=== PATIENT | male | born 1965 | race Caucasian/White ===

== ENCOUNTER 2016-10-01 07:42 | Observation (INO) | payer OTHER ==
[~2016-10-01] VITALS: Ht 175.3 cm; Wt 86.9 kg
[~2016-10-01 07:42] MED LIST: FLUT0.0529; OMEP20CA59 PO; SULF800T23 PO
[2016-10-01] MEDS ORDERED: ASPIRIN 324 MG CHEW PO STA (07:59)
[2016-10-01] MEDS ORDERED: NITROGLYCERIN 0.4 MG SL PER TAB CHARGE SL STA ×2 (07:59→09:36)
[2016-10-01 08:13] LABS: BASO % 1.2 %; BASO ABS # 0.07 K/uL (0-0.2); COMPLETE YES; HEMATOCRIT 45.2 % (42-52); IG% 0.3 %; LYMPH ABS # 2.39 K/uL (1.2-3.4); MEAN CELL VOLUME 87.3 fL (80-100); MEAN CORPUSCULAR HEMOGLOBIN 30.5 pg (25-34); MEAN PLATELET VOLUME 9.2 fL (7.4-10.4); MONO % 9.2 %; NEUT % 42.3 %; PLATELET COUNT 266 K/uL (130-400); RED BLOOD COUNT 5.18 M/uL (4.7-6.1); WHITE BLOOD COUNT 5.97 K/uL (4.8-10.8)
--- NOTE | 2016-10-01 08:14 | EMERGENCY ROOM VISIT NOTE ---
History First contact with patient: 07:48 Chief Complaint: CHEST PAIN Stated Complaint: HYPERTENSION, CHEST PAIN, LEFT ARM PAIN Nursing Triage Summary: pt here with chest pain/pressure since last pm. pt states had some pressure in his back. pt has been hypertensive, has had head pressure. denies sob, some intermittent dipahoresis History of Present Illness The patient is a 50 year old male who presents to the Emergency Room with complaints of chest pain, left arm pain and headache. The patient states that 2 nights ago he was very diaphoretic overnight. He states that he has also had an ongoing headache. He states he developed pressure in his chest last night. He states he has also noticed pain in the left posterior shoulder. The patient states that he felt short of breath but that has resolved. The patient reports a history of a heart murmur. His mother had a heart murmur. His father had a valve replacement, hypertension and atrial fibrillation. The patient denies any history of hypertension, hyperlipidemia, diabetes or cardiac disease. He had a normal stress echo in 2009. He denies any recent illness. Review of Systems A 10 system review of systems was completed with positives and pertinent negatives listed in the HPI. Past Medical/Surgical History Medical Problems: (1) GERD (gastroesophageal reflux disease) Surgical Problems: (1) History of dental surgery (2) History of vasectomy Social History Smoking Status: Never Smoker Drug Use: none Marital Status: Occupation Status: employed Current/Historical Medications Scheduled Amlodipine Besylate (Amlodipine Besylate), 5 MG PO QAM Omeprazole (Prilosec), 20 MG PO DAILY Scheduled PRN Fluticasone Propionate (Nasal) (Flonase Allergy Relief), 1 SPRAY EVELIA DAILY PRN for ALLERGIC REACTION Allergies Coded Allergies: No Known Allergies (Unverified , 10/01/16) Physical Exam Vital Signs Date Time Temp Pulse Resp B/P Pulse Ox O2 Delivery O2 Flow Rate FiO2 10/01/16 10:53 58 16 140/100 97 Room Air 10/01/16 10:42 49 10/01/16 09:58 56 16 115/78 97 Room Air 10/01/16 09:27 56 16 146/87 98 Room Air 10/01/16 08:35 50 16 119/76 97 Room Air 10/01/16 07:51 37.0 60 16 151/99 96 Room Air 10/01/16 07:50 70 Physical Exam VITALS: Vitals are noted on the nurse's note and reviewed by myself. Vital signs stable. The patient is afebrile. GENERAL: This is a 50-year-old male, in no acute distress, nondiaphoretic, well- developed well-nourished. SKIN: The skin was without rashes, erythema, edema, or bruising. There is no tenting of the skin. Capillary reflex less than 2 seconds. HEAD: Normocephalic atraumatic. EARS: External auditory canals clear, tympanic membranes pearly lozano without erythema or effusion bilaterally. EYES: Pupils equal round and reactive to light and accommodation. Conjunctivae without injection, sclerae without icterus. Extraocular movements intact. NOSE: Patent, turbinates without inflammation or discharge. MOUTH: Mucous membranes moist. Tonsils are not enlarged. Pharynx without erythema or exudate. Uvula midline. Airway patent. Tongue does not deviate. NECK: Supple without nuchal rigidity. No lymphadenopathy. No thyromegaly. Cervical spine is nontender. No JVD. HEART: Regular rate and rhythm without murmurs gallops or rubs. LUNGS: Clear to auscultation bilaterally without wheezes, rales or rhonchi. No retractions or accessory muscle use. ABDOMEN: Positive bowel sounds x 4. Soft, nontender, without masses or organomegaly. MUSCULOSKELETAL: No muscle atrophy, erythema, or edema noted. Full range of motion in all extremities. Normal gait. Strength 5/5 throughout. NEURO: Patient was alert and oriented to person place and time. No focal neurological deficits. Medical Decision & Procedures ER Provider Diagnostic Interpretation: [~ rep ct add3]] CHEST ONE VIEW PORTABLE CLINICAL HISTORY: chest pain dyspnea COMPARISON STUDY: No previous studies for comparison. FINDINGS: The bones soft tissues and hemidiaphragms are normal. The cardiomediastinal silhouette is normal. The lungs are clear. The pulmonary vasculature is normal. IMPRESSION: Negative chest. HEAD CT NONCONTRAST CT DOSE: 537.48 mGy.cm HISTORY: headache, hypertension TECHNIQUE: Multiaxial CT images of the head were performed without the use of intravenous contrast. Comparison: None. Findings: The paranasal sinuses and mastoid air cells are clear. The calvarium and skull base are intact. The ventricles and sulci are within normal limits. There is no mass, hematoma, midline shift, or acute infarct. Impression: No acute intracranial abnormality. Laboratory Results Test 10/01/16 07:52 10/01/16 08:02 10/01/16 09:49 Immature Granulocyte % (Auto) 0.3 % White Blood Count 5.97 K/uL (4.8-10.8) Red Blood Count 5.18 M/uL (4.7-6.1) Hemoglobin 15.8 g/dL (14.0-18.0) Hematocrit 45.2 % (42-52) Mean Corpuscular Volume 87.3 fL (80-100) Mean Corpuscular Hemoglobin 30.5 pg (25-34) Mean Corpuscular Hemoglobin Concent 35.0 g/dl (32-36) Platelet Count 266 K/uL (130-400) Mean Platelet Volume 9.2 fL (7.4-10.4) Neutrophils (%) (Auto) 42.3 % Lymphocytes (%) (Auto) 40.0 % Monocytes (%) (Auto) 9.2 % Eosinophils (%) (Auto) 7.0 % Basophils (%) (Auto) 1.2 % Neutrophils # (Auto) 2.52 K/uL (1.4-6.5) Lymphocytes # (Auto) 2.39 K/uL (1.2-3.4) Monocytes # (Auto) 0.55 K/uL (0.11-0.59) Eosinophils # (Auto) 0.42 K/uL (0-0.5) Basophils # (Auto) 0.07 K/uL (0-0.2) Immature Granulocyte # (Auto) 0.02 K/uL (0.00-0.02) Prothrombin Time 10.5 SECONDS (9.0-12.0) Prothromb Time International Ratio 1.0 (0.9-1.1) Activated Partial Thromboplast Time 27.7 SECONDS (21.0-31.0) Partial Thromboplastin Ratio 1.1 Total Bilirubin 0.8 mg/dl (0.2-1) Aspartate Amino Transf (AST/SGOT) 27 U/L (15-37) Alanine Aminotransferase (ALT/SGPT) 44 U/L (12-78) Alkaline Phosphatase 83 U/L (45-117) Total Creatine Kinase 136 U/L (39-308) Total Protein 7.9 gm/dl (6.4-8.2) Albumin 3.9 gm/dl (3.4-5.0) Globulin 4.0 gm/dl (2.5-4.0) Albumin/Globulin Ratio 1.0 (0.9-2) Bedside D-Dimer 81 ng/mlFEU (0-450) Bedside Troponin I 0.000 ng/ml (0-0.045) Medications Administered Medications (Trade) Dose Ordered Sig/Kimberly Route Start Time Stop Time Status Last Admin Dose Admin Aspirin (Aspirin Chew) 324 mg NOW STAT PO 10/01/16 07:59 10/01/16 08:01 DC 10/01/16 08:06 324 MG Nitroglycerin (Nitrostat Tab) 0.4 mg Q5M STAT SL 10/01/16 07:59 10/01/16 08:01 DC 10/01/16 08:07 0.4 MG Nitroglycerin (Nitrostat Tab) 0.4 mg Q5M STAT SL 10/01/16 09:36 10/01/16 09:37 DC 10/01/16 09:36 0.4 MG Procedure The patient was monitored on a cardiac cath technician. They maintained a normal sinus rhythm without ectopy. ECG Indication: chest pain Rate (beats per minute): 61 Rhythm: normal sinus Findings: no acute ischemic change Comparison ECG Date: no prior available ED Course The patient was seen and examined. Previous visits were reviewed. The patient does not have a fever or leukocytosis. He does not have any significant electrolyte abnormalities. Initial and repeat troponins was 0. D-dimer was not elevated. Urinalysis was negative. The patient was initially given 1 aspirin He was given 1 nitroglycerin sublingual which resolved pain The pain returned and he was given an additional sublingual nitroglycerin which again alleviated his pain The patient has had atypical chest pain. He has had 2 negative troponins. However, the patient had 2 episodes of chest pain which were alleviated with nitroglycerin Emergency department. I discussed the case with Dr. Higgins. He recommends admission to the hospital for observation for further evaluation. [facility] and [facility] will evaluate the patient. The case was discussed with Dr. Forbes who agrees with the assessment and treatment plan. Medical Decision DIFFERENTIAL DIAGNOSIS: Aortic dissection, myocarditis, pericarditis, cervical disc disease, costochondritis, herpes zoster, rib fracture, pleuritis, pneumonia , pulmonary embolus, tension pneumothorax, anxiety disorder, somatoform disorder , choledocholithiasis, status, esophagitis, esophageal spasm, esophageal reflux , esophageal rupture, pancreatitis, peptic ulcer disease, cardiac ischemia, ST elevation MT, acute coronary syndrome, arrhythmia, coronary artery vasospasm. vavular heart disease, coronary artery disease, among others. Impression Primary Impression: Substernal precordial chest pain Additional Impression: Headache Departure Information Prescriptions Amlodipine Besylate (Amlodipine Besylate) 5 Mg Tab 5 MG PO QAM for 30 Days, #30 TAB Prov: Silviano White, 10/02/16 Referrals Farhad Larsen M.D. (PCP) Patient Instructions My [facility] Problem Qualifiers
[2016-10-01 08:21] LABS: PARTIAL THROMBOPLASTIN RATIO 1.1; PROTHROMBIN TIME (PATIENT) 10.5 SECONDS (9.0-12.0)
--- NOTE | 2016-10-01 08:27 | DIAGNOSTIC IMAGING REPORT ---
HEAD CT NONCONTRAST CT DOSE: 537.48 mGy.cm HISTORY: headache, hypertension TECHNIQUE: Multiaxial CT images of the head were performed without the use of intravenous contrast. Comparison: None. Findings: The paranasal sinuses and mastoid air cells are clear. The calvarium and skull base are intact. The ventricles and sulci are within normal limits. There is no mass, hematoma, midline shift, or acute infarct. Impression: No acute intracranial abnormality. Electronically signed by: Puneet Noland M.D. 10/01/2016 8:26 AM Dictated Date/Time: 10/01/2016 8:25 AM
--- NOTE | 2016-10-01 08:34 | DIAGNOSTIC IMAGING REPORT ---
CHEST ONE VIEW PORTABLE CLINICAL HISTORY: chest pain dyspnea COMPARISON STUDY: No previous studies for comparison. FINDINGS: The bones soft tissues and hemidiaphragms are normal. The cardiomediastinal silhouette is normal. The lungs are clear. The pulmonary vasculature is normal. IMPRESSION: Negative chest. Electronically signed by: Puneet Noland M.D. 10/01/2016 8:33 AM Dictated Date/Time: 10/01/2016 8:32 AM
[2016-10-01] MEDS ORDERED: FLUT0.15 NAE (08:35)
[2016-10-01 08:43] LABS: ALKALINE PHOSPHATASE 83 U/L (45-117); ALT/SGPT 44 U/L (12-78); BLOOD UREA NITROGEN 13 mg/dl (7-18); BUN/CREATININE RATIO 11.7 (10-20); CARBON DIOXIDE 25 mmol/L (21-32); CHLORIDE 107 mmol/L (98-107); GLUCOSE 93 mg/dl (70-99)
[2016-10-01 08:47] LABS: POTASSIUM 4.5 mmol/L (3.5-5.1); SODIUM 140 mmol/L (136-145)
[2016-10-01 08:56] LABS: AST/SGOT 27 U/L (15-37)
[2016-10-01] MEDS ORDERED: NITROGLYCERIN 0.4 MG SL PER TAB CHARGE SL PRN (11:15)
[2016-10-01] MEDS ORDERED: ONDANSETRON INJ 2 MG/ML 2 ML VIAL IV PRN (11:15)
[2016-10-01 11:31] VITALS: BP 124/88; PULSE 61; TEMP 37; O2SAT 96; Ht 175.3 cm; Wt 86.9 kg
[2016-10-01] MEDS ORDERED: AMLODIPINE BESYLATE 5 MG TAB PO ONE ×2 (11:45→13:30)
--- NOTE | 2016-10-01 12:02 | History and Physical ---
History & Physical Date & Time of Service: Oct 01, 2016 at 11:44 Chief Complaint: Chest Pain, Headache Primary Care Physician: Farhad Larsen M.D. History of Present Illness 50 year old male who presents to the ER with reports of chest pain, headache, and left arm pain. Patient reports that for the past two days he has had a headache and felt very flushed. When he woke up in the morning he had alot of diaphoresis. This morning he had similar symptoms but reports right sided chest pressure with pain in the left shoulder, scapula, and posterior upper left arm. He reports the pain #5/10 at its worst. He notes some mild exertional shortness of breath the past couple of days. Last night when going to the bathroom he reports he felt mild lightheadedness. He denies dizziness and syncopal events. 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 Patient denies any specific causative or alleviating factors for his symptoms. He reports he is normally very active. He reports a high amount of stress with his job. He denies orthopnea and lower extremity edema. He denies abdominal pain, nausea, vomiting , or diarrhea. No fever or chills. He denies any urinary symptoms. In the ER, patient was given nitro x 2 for two separate episodes of chest pain which resolved his pain however he still has a mild headache. Troponins are negative x 2. EKG demonstrates NSR without acute ST changes. BP on arrival was 151/99. Labs are unremarkable. Past Medical/Surgical History Medical Problems: (1) GERD (gastroesophageal reflux disease) Status: Chronic Surgical Problems: (1) History of dental surgery Status: Chronic (2) History of vasectomy Status: Chronic Family History FH: CHF (congestive heart failure) FATHER FH: COPD (chronic obstructive pulmonary disease) MOTHER FH: arrhythmia 1/2 Brother 1/2 Sister FH: atrial fibrillation FATHER Social History Smoking Status: Never Smoker Alcohol Use: occasionally Marital Status: Occupational Status: employed Immunizations History of Influenza Vaccine: Yes Influenza Vaccine Date: Apr 15, 2016 History of Tetanus Vaccine?: Yes Tetanus Immunization Date: Aug 26, 2011 Allergies Coded Allergies: No Known Allergies (Unverified , 10/01/16) Home Medications Scheduled Omeprazole (Prilosec), 20 MG PO DAILY Scheduled PRN Fluticasone Propionate (Nasal) (Flonase Allergy Relief), 1 SPRAY EVELIA DAILY PRN for ALLERGIC REACTION Review of Systems 10 point review of systems was completed with the pertinent positives and negatives noted per the HPI Physical Exam Vital Signs Date Time Temp Pulse Resp B/P Pulse Ox O2 Delivery O2 Flow Rate FiO2 10/01/16 11:31 37.0 61 16 124/88 96 Room Air 10/01/16 10:53 58 16 140/100 97 Room Air 10/01/16 10:42 49 10/01/16 09:58 56 16 115/78 97 Room Air 10/01/16 09:27 56 16 146/87 98 Room Air 10/01/16 08:35 50 16 119/76 97 Room Air 10/01/16 07:51 37.0 60 16 151/99 96 Room Air 10/01/16 07:50 70 General Appearance: no apparent distress Head: normocephalic Eyes: normal inspection ENT: hearing grossly normal Neck: supple, no JVD Respiratory/Chest: chest non-tender, lungs clear, normal breath sounds, no respiratory distress Cardiovascular: regular rate, rhythm, no edema, normal peripheral pulses Abdomen/GI: normal bowel sounds, non tender, soft Extremities/Musculoskelatal: normal inspection, no calf tenderness Neurologic/Psych: no motor/sensory deficits, alert, normal mood/affect, oriented x 3 Skin: normal color, warm/dry Diagnostics Laboratory Results Results Past 24 Hours Test 10/01/16 07:52 10/01/16 08:02 10/01/16 09:49 Range/Units White Blood Count 5.97 4.8-10.8 K/uL Red Blood Count 5.18 4.7-6.1 M/uL Hemoglobin 15.8 14.0-18.0 g/dL Hematocrit 45.2 42-52 % Mean Corpuscular Volume 87.3 80-100 fL Mean Corpuscular Hemoglobin 30.5 25-34 pg Mean Corpuscular Hemoglobin Concent 35.0 32-36 g/dl Platelet Count 266 130-400 K/uL Mean Platelet Volume 9.2 7.4-10.4 fL Neutrophils (%) (Auto) 42.3 % Lymphocytes (%) (Auto) 40.0 % Monocytes (%) (Auto) 9.2 % Eosinophils (%) (Auto) 7.0 % Basophils (%) (Auto) 1.2 % Neutrophils # (Auto) 2.52 1.4-6.5 K/uL Lymphocytes # (Auto) 2.39 1.2-3.4 K/uL Monocytes # (Auto) 0.55 0.11-0.59 K/uL Eosinophils # (Auto) 0.42 0-0.5 K/uL Basophils # (Auto) 0.07 0-0.2 K/uL RDW Standard Deviation 39.1 36.4-46.3 fL RDW Coefficient of Variation 12.2 11.5-14.5 % Immature Granulocyte % (Auto) 0.3 % Immature Granulocyte # (Auto) 0.02 0.00-0.02 K/uL Prothrombin Time 10.5 9.0-12.0 SECONDS Prothromb Time International Ratio 1.0 0.9-1.1 Activated Partial Thromboplast Time 27.7 21.0-31.0 SECONDS Partial Thromboplastin Ratio 1.1 Sodium Level 140 136-145 mmol/L Potassium Level 4.5 3.5-5.1 mmol/L Chloride Level 107 98-107 mmol/L Carbon Dioxide Level 25 21-32 mmol/L Anion Gap 8.0 3-11 mmol/L Blood Urea Nitrogen 13 7-18 mg/dl Creatinine 1.10 0.60-1.40 mg/dl Est Creatinine Clear Calc Drug Dose 88.6 ml/min Estimated GFR () 90.9 Estimated GFR (Non- 78.4 BUN/Creatinine Ratio 11.7 10-20 Random Glucose 93 70-99 mg/dl Calcium Level 9.0 8.5-10.1 mg/dl Total Bilirubin 0.8 0.2-1 mg/dl Aspartate Amino Transf (AST/SGOT) 27 15-37 U/L Alanine Aminotransferase (ALT/SGPT) 44 12-78 U/L Alkaline Phosphatase 83 45-117 U/L Total Creatine Kinase 136 39-308 U/L Creatine Kinase MB 1.4 0.5-3.6 ng/ml Creatine Kinase MB Ratio 1.0 0-3.0 Troponin I < 0.015 0-0.045 ng/ml Total Protein 7.9 6.4-8.2 gm/dl Albumin 3.9 3.4-5.0 gm/dl Globulin 4.0 2.5-4.0 gm/dl Albumin/Globulin Ratio 1.0 0.9-2 Bedside D-Dimer 81 0-450 ng/mlFEU Bedside Troponin I 0.000 0.000 0-0.045 ng/ml Diagnostic Radiology Head CT Impression: No acute intracranial abnormality. CXR IMPRESSION: Negative chest. Impression Assessment and Plan ATYPICAL CHEST PAIN - admit to tele - patient presenting with headache, flushing, diaphoresis x 2 days and right sided chest pressure with left arm/shoulder/scapula pain this morning - no risk factors for CAD identified - had two episodes of resting chest pain in ED - both relieved with nitro - BP on arrival - 150/99; has been taking BPs at home that have been 140s- 150s/90s-low 100s; no diagnosis of HTN - suspect HTN cause of patient's symptoms; due to diastolic HTN, will start amlodipine 5m daily - initial troponin negative, EKG without acute ST changes - continue to cycle cardiac enzymes, check resting echo - defer stress test to cardio - patient reports increased stress/anxiety at work - may benefit from SSRI, defer to PCP at follow up GERD - continue PPI DVT PROPHYLAXIS - SCDs DISPO - The patient will be placed as observation status for now until further work up is complete. - Expect d/c home once medically stable. ADDENDUM: This is a 50 year old male with no significant past medical history presents with chest pain, started on the right side of the chest, radiated to the left and then to the left scapula. Noted to have blood pressure elevated as outpatient with diastolic > 100. He presented to the ER, had two SL nitro which resolved the chest pain. No ST-T wave changes on EKG; initial set of cardiac enzymes negative. Patient is comfortable, with no issues to note currently. VITALS: Last Vital Signs Documentation Date Time Temp Pulse Resp B/P Pulse Ox O2 Delivery O2 Flow Rate FiO2 10/01/16 11:31 37.0 61 16 124/88 96 Room Air GEN: no acute distress CVS: +S1, S2, RRR LUNGS: CTA b/l, no wheezing ABD: soft, NT/ND EXT: no edema Chest Pain r/o ACS trend cardiac enzymes check echocardiogram monitor in tele for any arrhythmias started on low dose Norvasc for blood pressure issues cardiology consulted Advanced Directives Existing Living Will: No Existing Power of Global Compensation Analyst: No VTE Prophylaxis VTE Risk Assessment Done? Y/N: Yes Risk Level: Low
[2016-10-01 12:16] VITALS: O2SAT 96
[2016-10-01 13:53] VITALS: BP 124/73; PULSE 64; TEMP 36.7; O2SAT 95
[2016-10-01] MEDS ORDERED: IV FLUIDS COMPLETED PRN (14:45)
--- NOTE | 2016-10-01 14:51 | CARDIOLOGY CONSULTATION ---
DATE OF CONSULTATION: 10/01/2016 PRIMARY CARE PHYSICIAN: Dr. Farhad Capellan. REFERRING PROVIDER: Dr. Giovana Grey REFERRING PHYSICIAN: Silviano White DO. CHIEF COMPLAINT ON ADMISSION: Headache, chest discomfort. HISTORY OF PRESENT ILLNESS: Mr. Funes is a 50-year-old gentleman who presented to the Emergency Department with complaints of chest discomfort, headache, left-sided neck and arm pain. The patient noted that for the past 2 days he has felt flushed with headache intermittently. On the night before last he had awoken with diaphoresis. 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 He declined initially to come to the ER yesterday, however, today his symptoms recurred and were more severe. He was brought to the Emergency Department by his . Initially having 5/10 chest discomfort. He was treated with sublingual nitroglycerin and aspirin. After approximately 5-10 minutes, his discomfort resolved, however, headache has been intermittent since admission. He received a second dose of nitroglycerin while in the ER. His initial cardiac enzymes are negative. His baseline ECG demonstrates sinus rhythm without ST-T wave changes. His blood pressure is elevated initially on arrival. REVIEW OF SYSTEMS: The pertinent positive noted above, a comprehensive 10-system review is otherwise negative. PAST MEDICAL HISTORY: GERD. PAST SURGICAL HISTORY: 1. Dental surgery. 2. Vasectomy. FAMILY HISTORY: He has a brother and sister who had a history of atrial fibrillation, there is no premature coronary artery disease or sudden cardiac . SOCIAL HISTORY: He is a lifelong nonsmoker, he is and lives with his . He has 3 grown children. 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 ALLERGIES: No known drug allergies. HOME MEDICATIONS: 1. Prilosec 20 mg daily. 2. Flonase as needed. ECG on admission is normal sinus rhythm, within normal limits. Chest x-ray is within normal limits. CT of the head demonstrates no active disease. LABORATORY DATA: Initial troponin undetectable, repeat troponin performed approximately 2 hours later is also undetectable. Sodium 140, potassium 4.5, chloride is 107, CO2 is 25, BUN is 13, creatinine is 1.10. White blood cell count 5.97, hemoglobin is 15.8, platelet count is 266. PT is 10.5, INR is 1.0. D-dimer is 81. Telemetry demonstrates sinus rhythm. PHYSICAL EXAMINATION: VITAL SIGNS: Temperature is 36.7 degrees centigrade, pulse 64 beats per minute and regular, respiratory rate 16 breaths per minute, blood pressure 124/73 SaO2 is 95% on room air. GENERAL: NAD, healthy appearing, awake, alert and oriented x3. THROAT: His mucous membranes are moist. There is no scleral icterus. Conjunctivae are pink. NECK: Supple. There is no JVD, no HJR. No carotid bruit. HEART: Regular with a normal S1 and S2. There is no murmur, rub, or gallop. LUNGS: Clear. There are no rales, rhonchi or wheezes. ABDOMEN: Soft, nontender. No rebound or guarding. Normal bowel sounds. EXTREMITIES: Warm and dry. There is no clubbing, cyanosis or edema. NEUROLOGIC: Demonstrates no focal motor deficit. FINAL IMPRESSION: 1. Atypical chest discomfort. 2. Gastroesophageal reflux disease. 3. Family history of atrial fibrillation. 4. Elevated blood pressure --? situational. PLAN AND RECOMMENDATIONS: The patient is admitted for observation regarding chest discomfort. Initial cardiac enzymes are negative. His cardiac enzymes will be repeated x2 sets. Resting 2D transthoracic echo has been ordered, although study has not been completed. I will review when available. Repeat ECG will be performed with any recurrent chest discomfort. Continue telemetry monitoring during hospitalization. Low dose amlodipine added for blood pressure management. Tentative plan for exercise stress echocardiography in the a.m. if initial enzymes and echocardiography are within normal limits. Thank you for allowing me to take part in the care of your patient. CANDE
[2016-10-01 15:24] LABS: URINE APPEARANCE CLEAR (CLEAR); URINE BILIRUBIN NEG (NEG); URINE COLOR YELLOW; URINE NITRITE NEG (NEG); URINE PH 6.5 (4.5-7.5); URINE SPECIFIC GRAVITY 1.012 (1.000-1.030); UROBILINOGEN NEG (NEG); ZZUR CULT IF INDIC CLEAN CATCH NO
[2016-10-01 15:29] LABS: MANUAL MICROSCOPIC REQUIRED? NO; REVIEW REQ? NO
[2016-10-01 15:41] VITALS: BP 125/72; PULSE 51; TEMP 37; O2SAT 96
--- NOTE | 2016-10-01 15:56 | ECHOCARDIOGRAM REPORT ---
*NOTICE TO RECEIVING REPUBLICAN AGENCY This information is strictly Confidential and protected under [place] law. [place] law prohibits you from making any further disclosure of this information unless further disclosure is expressly permitted by the written consent of the person to whom it pertains or is authorized by law. A general authorization for the release of medical or other information is not sufficient for this purpose. Hospital accepts no responsibility if the information is made available to any other person, INCLUDING THE PATIENT. Interpretation Summary * Name: MICAELA SANCHEZ Study Date: 10/01/2016 02:13 PM BP: 124/73 mmHg * Patient Location: [facility]\S\N277\S\2 HR: 64 * : 1965 (M/d/yyyy) Gender: Male Height: 69 in * Age: 50 yrs Ethnicity: [place] Weight: 190 lb * Ordering Physician: Giovana Grey * Performed By: Krissy Worley RDCS * * Reason For Study: Chest pain * BSA: 2.0 m2 * The study was technically adequate. * -- Conclusions -- * Left ventricular systolic function is normal. * Ejection Fraction = 60-65%. * Pulse wave TDI of the anterior and posterior mitral annulas demonstrates normal LV relaxation * No significant valvular pathology. Procedure Details * A complete two-dimensional transthoracic echocardiogram was performed (2D, M-mode, Doppler and color flow Doppler). Left Ventricle * The left ventricle is normal in size. * There is no thrombus. * There is normal left ventricular wall thickness. * Ejection Fraction = 60-65%. * Left ventricular systolic function is normal. * The left ventricular wall motion is normal. Right Ventricle * The right ventricle is normal size. * The right ventricular systolic function is normal as assessed by tricuspid annular plane systolic excursion (TAPSE) (normal >1.5 cm). Atria * The left atrial size is normal. * Right atrial size is normal. * There is no evidence of atrial septal defect, but resolution does not allow assessment for a patent foramen ovale. Mitral Valve * The mitral valve is normal. * There is no mitral valve stenosis. * Significant mitral regurgitation is absent. Tricuspid Valve * The tricuspid valve is normal. * There is no tricuspid stenosis. * Significant tricuspid regurgitation is absent. Aortic Valve * The aortic valve is trileaflet. * Aortic stenosis is absent. * There is no significant aortic regurgitation. Pulmonic Valve * The pulmonary valve is not well seen, but the Doppler examination is normal without significant regurgitation or stenosis. Great Vessels * The aortic root is normal size. Pericardium/Pleural * There is no pericardial effusion. Great Vessels * Normal inferior vena cava diameter and respiratory variation suggests normal central venous pressure. Left Ventricular Diastolic Function * Pulse wave TDI of the anterior and posterior mitral annulas demonstrates normal LV relaxation MMode 2D Measurements and Calculations IVSd 0.88 cm LVIDd 5.1 cm LVIDs 3.2 cm LVPWd 0.87 cm IVS/LVPW 1.0 FS 37.9 % EDV(Teich) 122.5 ml ESV(Teich) 39.5 ml EF(Teich) 67.7 % EDV(cubed) 130.8 ml ESV(cubed) 31.4 ml EF(cubed) 76.0 % LV mass(C)d 155.8 grams LV mass(C)dI 77.1 grams/m\S\2 CO(Teich) 4.0 l/min CI(Teich) 2.0 l/min/m\S\2 SV(Teich) 82.9 ml SI(Teich) 41.0 ml/m\S\2 CO(cubed) 4.8 l/min CI(cubed) 2.4 l/min/m\S\2 SV(cubed) 99.4 ml SI(cubed) 49.2 ml/m\S\2 Ao root diam 3.0 cm Ao root area 7.2 cm\S\2 ACS 1.9 cm LA dimension 3.4 cm asc Aorta Diam 3.0 cm LA/Ao 1.1 LVOT diam 2.0 cm LVOT area 3.1 cm\S\2 LVAd ap4 30.8 cm\S\2 LVLd ap4 8.0 cm EDV(MOD-sp4) 99.7 ml LVAs ap4 15.1 cm\S\2 LVLs ap4 6.0 cm ESV(MOD-sp4) 32.1 ml EF(MOD-sp4) 67.8 % LVAd ap2 33.4 cm\S\2 LVLd ap2 8.7 cm EDV(MOD-sp2) 109.0 ml LVAs ap2 17.1 cm\S\2 LVLs ap2 6.8 cm ESV(MOD-sp2) 36.1 ml EF(MOD-sp2) 66.9 % CO(MOD-sp4) 3.2 l/min CI(MOD-sp4) 1.6 l/min/m\S\2 SV(MOD-sp4) 67.6 ml SI(MOD-sp4) 33.4 ml/m\S\2 CO(MOD-sp2) 3.5 l/min CI(MOD-sp2) 1.7 l/min/m\S\2 SV(MOD-sp2) 72.9 ml SI(MOD-sp2) 36.1 ml/m\S\2 Doppler Measurements and Calculations MV E max kasey 79.5 cm/sec MV A max kasey 76.6 cm/sec MV E/A 1.0 MV dec time 0.20 sec Ao V2 max 130.3 cm/sec Ao max PG 6.8 mmHg Ao max PG (full) 0.96 mmHg DB(V,A) 2.9 cm\S\2 DB(V,D) 2.9 cm\S\2 LV V1 max PG 5.8 mmHg LV V1 max 120.8 cm/sec PA V2 max 105.9 cm/sec PA max PG 4.5 mmHg PA acc slope 495.9 cm/sec\S\2 PA acc time 0.14 sec PI max kasey 143.9 cm/sec PI max PG 8.3 mmHg PI dec slope 146.3 cm/sec\S\2 PI P1/2t 288.0 msec TR max kasey 194.7 cm/sec PA pr(Accel) 15.6 mmHg
[2016-10-01] MEDS: ACETAMINOPHEN 325 MG TAB PO PRN ×2 (17:51→21:57)
[2016-10-01 19:46] VITALS: BP 128/79; PULSE 69; TEMP 36.7; O2SAT 99
[2016-10-02 00:15] VITALS: BP 117/72; PULSE 61; TEMP 36.5; O2SAT 96
[2016-10-02 05:31] VITALS: BP 131/80; PULSE 56; TEMP 36.5; O2SAT 96
[2016-10-02 07:35] VITALS: BP 143/87; PULSE 69; TEMP 36.8; O2SAT 96
[2016-10-02 08:04] LABS: MEAN CELL VOLUME 89.5 fL (80-100); MEAN CORPUSCULAR HEMOGLOBIN 31.5 pg (25-34); MEAN CORPUSCULAR HGB CONC 35.2 g/dl (32-36); MEAN PLATELET VOLUME 9.2 fL (7.4-10.4); PLATELET COUNT 249 K/uL (130-400); RED BLOOD COUNT 5.14 M/uL (4.7-6.1); WHITE BLOOD COUNT 6.06 K/uL (4.8-10.8)
[2016-10-02 08:48] LABS: BLOOD UREA NITROGEN 12 mg/dl (7-18); BUN/CREATININE RATIO 12.7 (10-20); CALCIUM 9.4 mg/dl (8.5-10.1); CARBON DIOXIDE 29 mmol/L (21-32); CHLORIDE 105 mmol/L (98-107); CHOLESTEROL 173 mg/dl (0-200); CHOLESTEROL/HDL RATIO 4.4; CREATININE 0.94 mg/dl (0.60-1.40); GLUCOSE 91 mg/dl (70-99); HDL CHOLESTEROL 39 mg/dl; LDL CHOLESTEROL CALCULATED 63 mg/dl; SODIUM 141 mmol/L (136-145); TRIGLYCERIDES 357 mg/dl (0-150); VERY LOW DENSITY LIPOPROT CALC 71 mg/dl
[2016-10-02] MEDS ORDERED: AMLODIPINE BESYLATE 5 MG TAB PO SCH (09:00)
[2016-10-02] MEDS ORDERED: ASPIRIN 81 MG ECTAB PO SCH (09:00)
[2016-10-02] MEDS ORDERED: PANTOprazole SOD 40 MG TAB PO SCH (09:00)
[2016-10-02] MEDS ORDERED: PERFLUTREN LIPID MICROSPHERE (DEFINITY) IV ONE (10:02)
--- NOTE | 2016-10-02 11:16 | EXERCISE STRESS ECHO ---
*NOTICE TO RECEIVING LIBERTARIAN AGENCY This information is strictly Confidential and protected under [place] law. [place] law prohibits you from making any further disclosure of this information unless further disclosure is expressly permitted by the written consent of the person to whom it pertains or is authorized by law. A general authorization for the release of medical or other information is not sufficient for this purpose. Hospital accepts no responsibility if the information is made available to any other person, INCLUDING THE PATIENT. Interpretation Summary * Name: MICAELA SANCHEZ Study Date: 10/02/2016 08:52 AM BP: 127/81 mmHg * [facility]\S\N277\S\2 HR: 55 * : 1965 (M/d/yyyy) Gender: Male Height: 69 in * Age: 50 yrs Ethnicity: [place] Weight: 191 lb * Ordering Physician: Kevin Higgins * Referring Physician: Self, Referred * Performed By: Leoncio Tabares RCS * * Reason For Study: Chest Pain * BSA: 2.0 m2 * The study was technically adequate. * Compared to prior study, there is no significant change. * STRESS STUDY: Normal exercise stress echocardiogram. No echocardiographic or ECG evidence of myocardial ischemia having achieved heart rate adequate for diagnostic purposes. * Exercise capacity is above average. Procedure Details * ECHOEX, CPT #80843 * A contrast injection of Definity was performed to improve assessment of LV function. * Contrast was injected into an intravenous site in the left arm. * One vial of Definity ultrasound contrast was diluted in normal saline to a total volume of 10 ml. A total of '4' ml of solution was administered during imaging. * Lot # [id number] of Definity utilized for procedure. * Expiration date . * The attending nurse who injected the contrast agent was Goldie Benavides RN. Left Ventricle * There is normal left ventricular wall thickness. * The left ventricular ejection fraction increases normally with stress. The left ventricular end-systolic cavity size reduces post-stress (normal response). The left ventricular wall motion with stress is normal. * Ejection Fraction = 60-65%. * Resting wall motion: Normal. Stress wall motion: Appropriate increase in Left ventricular systolic function and decrease in cavity size. No stress induced segmental wall motion abnormalities. Pericardium * There is no pericardial effusion. Stress Parameters * The baseline ECG displays normal sinus rhythm. * Stress ECG: No ST changes. No arrhythmias. * The stress portion of this study was personally supervised by the undersigned interpreting physician. * Rest heart rate was '55' BPM. * Rest blood pressure was '127/81' * Maximum heart rate achieved was 166 bpm. * Maximum heart rate was 97 % of maximum age-predicted heart rate. * Maximum blood pressure was '180/74' * Total exercise time was '10:31' * Maximum exercise MET level achieved was '12.5' METS * Maximum treadmill speed was '4.2' miles per hour. * Maximum treadmill elevation was '16'% grade. * Exercise was terminated due to 'fatigue after achieving target heart rate' * Normal blood pressure response to exercise. * Normal heart rate response to exercise.
[2016-10-02 11:24] VITALS: BP 124/66; PULSE 80; TEMP 36.7; O2SAT 92
--- NOTE | 2016-10-02 12:19 | Progress Note ---
Subjective Date of Service: Oct 02, 2016. Subjective Pt evaluation today including: conversation w/ patient, physical exam, lab review, review of studies, conversation w/ funeral pre need consultant, review of inpatient medication list Saw/examined the patient in room 277 after his stress test He is doing well, no chest pain, no shortness of breath No other symptoms to note Review of Systems Constitutional: No chills, No fever Respiratory: No cough, No dyspnea at rest, No dyspnea on exertion, No hemoptysis, No shortness of breath, No sputum, No wheezing Cardiac: No chest pain, No edema, No palpitations Abdomen: No constipation, No diarrhea, No nausea, No pain, No vomiting Musculoskeletal: No joint pain Heme: No abnormal bleeding/bruising Medications Current Inpatient Medications Medications (Trade) Dose Ordered Sig/Kimberly Route Start Time Stop Time Status Last Admin Dose Admin Acetaminophen (Tylenol Tab) 650 mg Q4H PRN PO 10/01/16 11:15 10/31/16 11:14 10/01/16 21:57 650 MG Ondansetron HCl (Zofran Inj) 4 mg Q6H PRN IV 10/01/16 11:15 10/31/16 11:14 Nitroglycerin (Nitrostat Tab) 0.4 mg UD PRN SL 10/01/16 11:15 10/31/16 11:14 Aspirin (Ecotrin Tab) 81 mg QAM PO 10/02/16 09:00 11/01/16 08:59 10/02/16 08:57 81 MG Pantoprazole Sodium (Protonix Tab) 40 mg QAM PO 10/02/16 09:00 11/01/16 08:59 10/02/16 08:57 40 MG Amlodipine Besylate (Norvasc Tab) 5 mg QAM PO 10/02/16 09:00 11/01/16 08:59 10/02/16 08:57 5 MG Miscellaneous (Iv Fluids Completed) 1 ea PRN PRN N/A 10/01/16 14:45 10/01/17 14:44 Objective Vital Signs Date Time Temp Pulse Resp B/P Pulse Ox O2 Delivery O2 Flow Rate FiO2 10/02/16 11:24 36.7 80 18 124/66 92 Room Air 10/02/16 08:00 Room Air 10/02/16 07:35 36.8 69 18 143/87 96 10/02/16 05:31 36.5 56 18 131/80 96 Room Air 10/02/16 04:00 Room Air 10/02/16 00:15 36.5 61 18 117/72 96 Room Air 10/02/16 00:07 Room Air 10/01/16 20:05 Room Air 10/01/16 19:46 36.7 69 14 128/79 99 Room Air 10/01/16 16:15 Room Air 10/01/16 15:41 37.0 51 16 125/72 96 Room Air 10/01/16 13:53 36.7 64 16 124/73 95 Room Air 10/01/16 12:16 59 20 126/83 96 Physical Exam General Appearance: no apparent distress Respiratory/Chest: chest non-tender, lungs clear, normal breath sounds, no respiratory distress, no accessory muscle use Cardiovascular: regular rate, rhythm, no edema, no murmur Abdomen: normal bowel sounds, non tender, soft Extremities: normal range of motion, non-tender, normal inspection, no pedal edema, no calf tenderness Neurologic/Psychiatric: no motor/sensory deficits, alert, normal mood/affect Skin: normal color Laboratory Results Last 24 Hours Test 10/01/16 15:00 10/01/16 15:25 10/01/16 21:00 10/01/16 21:25 Urine Color YELLOW Urine Appearance CLEAR Urine pH 6.5 Urine Specific [place] 1.012 Urine Protein NEG Urine Glucose (UA) NEG Urine Ketones NEG Urine Occult Blood NEG Urine Nitrite NEG Urine Bilirubin NEG Urine Urobilinogen NEG Urine Leukocyte Esterase NEG Creatine Kinase MB Ratio Creatine Kinase MB 0.6 ng/ml 1.1 ng/ml Troponin I < 0.015 ng/ml < 0.015 ng/ml Test 10/02/16 07:48 10/02/16 10:31 White Blood Count 6.06 K/uL Red Blood Count 5.14 M/uL Hemoglobin 16.2 g/dL Hematocrit 46.0 % Mean Corpuscular Volume 89.5 fL Mean Corpuscular Hemoglobin 31.5 pg Mean Corpuscular Hemoglobin Concent 35.2 g/dl RDW Standard Deviation 39.6 fL RDW Coefficient of Variation 12.2 % Platelet Count 249 K/uL Mean Platelet Volume 9.2 fL Sodium Level 141 mmol/L Potassium Level mmol/L 4.3 mmol/L Chloride Level 105 mmol/L Carbon Dioxide Level 29 mmol/L Anion Gap 7.0 mmol/L Blood Urea Nitrogen 12 mg/dl Creatinine 0.94 mg/dl Est Creatinine Clear Calc Drug Dose 103.8 ml/min Estimated GFR () 109.9 Estimated GFR (Non- 94.8 BUN/Creatinine Ratio 12.7 Random Glucose 91 mg/dl Calcium Level 9.4 mg/dl Triglycerides Level 357 mg/dl Cholesterol Level 173 mg/dl HDL Cholesterol 39 mg/dl LDL Cholesterol, Calculated 63 mg/dl VLDL Cholesterol, Calculated 71 mg/dl Cholesterol/HDL Ratio 4.4 Assessment and Plan This is a 50 year old male with no significant past medical history presents with chest pain and elevated blood pressure Chest Pain, ACS ruled out 3/2 stress echo performed and negative cardiac enzymes negative EKG with some first degree AV block, but no ST-T wave changes plan is to discharge with outpatient PCP follow-up - Dr. Mann on October 08 @ 10:50 3 trend cardiac enzymes check echocardiogram monitor in tele for any arrhythmias started on low dose Norvasc for blood pressure issues cardiology consulted HTN started on Norvasc, will continue Norvasc and outpatient blood pressure check should be performed Hypertriglyceridemia Triglycerides > 300 diet change recommended, recheck lipid panel in 3 months DVT ppx SCDs FULL CODE
[2016-10-02] MEDS ORDERED: NRV5 PO (12:20)
--- NOTE | 2016-10-02 12:23 | Discharge Instructions ---
Discharge Instructions Admission Reason for Admission: Chest Pain Discharge Discharge Diagnosis / Problem: Chest Pain; HTN Discharge Goals Goal(s): Decrease discomfort, Improve function, Diagnostic testing, Therapeutic intervention Activity Recommendations Activity Limitations: resume your previous activity . Instructions / Follow-Up Instructions / Follow-Up Please follow-up with Dr. Mann (covering for Dr. Larsen) on October 08 @ 10:50AM You will be started on Norvasc for blood pressure Current Hospital Diet Patient's current hospital diet: AHA Diet (Heart Healthy) Discharge Diet Recommended Diet: Regular Diet Pending Studies Studies pending at discharge: no Laboratory Results Lipid Panel Test 10/02/16 07:48 Range/Units Triglycerides Level 357 H 0-150 mg/dl Cholesterol Level 173 0-200 mg/dl HDL Cholesterol 39 mg/dl Cholesterol/HDL Ratio 4.4 LDL Cholesterol, Calculated 63 mg/dl Medical Emergencies . Who to Call and When: Medical Emergencies: If at any time you feel your situation is an emergency, please call 911 immediately. . Non-Emergent Contact Non-Emergency issues call your: Primary Care Provider . . "Provider Documentation" section prepared by Silviano White. VTE Core Measure Inpt VTE Proph given/why not?: SCD's
[2016-10-02 14:04] VITALS: BP 124/66; PULSE 80; TEMP 36.7; O2SAT 92
--- NOTE | 2016-10-10 13:23 | Discharge Summary ---
Discharge Summary Date of Service Oct 10, 2016. Discharge Summary Admission Date: Oct 01, 2016 at 11:04 Discharge Date: Oct 02, 2016 Discharge Disposition: Home Principal Diagnosis: Chest Pain, HTN Medication Reconciliation New Medications: Amlodipine Besylate (Amlodipine Besylate) 5 Mg Tab 5 MG PO QAM for 30 Days, #30 TAB Continued Medications: Fluticasone Propionate (Nasal) (Flonase Allergy Relief) 50 Mcg/Act Spr 1 SPRAY EVELIA DAILY PRN for ALLERGIC REACTION Omeprazole (Prilosec) 20 Mg Capcr 20 MG PO DAILY, CAP Admission Information HPI (per Admitting provider): 50 year old male who presents to the ER with reports of chest pain, headache, and left arm pain. Patient reports that for the past two days he has had a headache and felt very flushed. When he woke up in the morning he had alot of diaphoresis. This morning he had similar symptoms but reports right sided chest pressure with pain in the left shoulder, scapula, and posterior upper left arm. He reports the pain #5/10 at its worst. He notes some mild exertional shortness of breath the past couple of days. Last night when going to the bathroom he reports he felt mild lightheadedness. He denies dizziness and syncopal events. 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 Patient denies any specific causative or alleviating factors for his symptoms. He reports he is normally very active. He reports a high amount of stress with his job. He denies orthopnea and lower extremity edema. He denies abdominal pain, nausea, vomiting , or diarrhea. No fever or chills. He denies any urinary symptoms. In the ER, patient was given nitro x 2 for two separate episodes of chest pain which resolved his pain however he still has a mild headache. Troponins are negative x 2. EKG demonstrates NSR without acute ST changes. BP on arrival was 151/99. Labs are unremarkable. Physical Exam (per Admitting): General Appearance: no apparent distress Head: normocephalic Eyes: normal inspection ENT: hearing grossly normal Neck: supple, no JVD Respiratory/Chest: chest non-tender, lungs clear, normal breath sounds, no respiratory distress Cardiovascular: regular rate, rhythm, no edema, normal peripheral pulses Abdomen/GI: normal bowel sounds, non tender, soft Extremities/Musculoskelatal: normal inspection, no calf tenderness Neurologic/Psych: no motor/sensory deficits, alert, normal mood/affect, oriented x 3 Skin: normal color, warm/dry Hospital Course This is a 50 year old male with no significant past medical history presents with chest pain and elevated blood pressure Chest Pain, ACS ruled out 3/2 stress echo performed and negative cardiac enzymes negative EKG with some first degree AV block, but no ST-T wave changes plan is to discharge with outpatient PCP follow-up - Dr. Mann on October 08 @ 10:50 3 trend cardiac enzymes check echocardiogram monitor in tele for any arrhythmias started on low dose Norvasc for blood pressure issues cardiology consulted HTN started on Norvasc, will continue Norvasc and outpatient blood pressure check should be performed Hypertriglyceridemia Triglycerides > 300 diet change recommended, recheck lipid panel in 3 months DVT ppx SCDs FULL CODE Total time spent on discharge = 25 minutes This includes examination of the patient, discharge planning, medication reconciliation, and communication with other providers. Discharge Instructions Please follow-up with Dr. Mann (covering for Dr. Larsen) on October 08 @ 10:50AM You will be started on Norvasc for blood pressure
== END 2016-10-02 14:25 | disposition home or self-care (01) ==
LOC: ENRESERVTM → ENRESERVDT → C.EDB 07:43 → C.MED 11:04
PROVIDERS: ADMIT Family Medicine; ATTEND Family Medicine
DX: R07.89 Other chest pain (principal); R51 Headache; I10 Essential (primary) hypertension; E78.1 Pure hyperglyceridemia; I44.0 Atrioventricular block, first degree; K21.9 Gastro-esophageal reflux disease without esophagitis; Z82.49 Family history of ischemic heart disease and other diseases of the circulatory system; Z82.5 Family history of asthma and other chronic lower respiratory diseases

== ENCOUNTER 2017-12-14 22:05 | Emergency (ER) | payer OTHER ==
[~2017-12-14] VITALS: Ht 175.3 cm; Wt 89.6 kg
[~2017-12-14 22:05] MED LIST changes: -FLUT0.0529; +FLUT0.15 NAE; +NRV5 PO; -SULF800T23 PO
[2017-12-14 22:11] VITALS: TEMP 36.6; Ht 175.3 cm; Wt 89.6 kg
[2017-12-14] MEDS ORDERED: SODIUM CHLORIDE 0.9% 1000ML 1,000 ML IV STA (22:23)
[2017-12-14 22:32] LABS: BASO % 0.6 %; BASO ABS # 0.06 K/uL (0-0.2); EOS % 4.8 %; EOS ABS # 0.47 K/uL (0-0.5); HEMATOCRIT 43.6 % (42-52); HEMOGLOBIN 15.5 g/dL (14.0-18.0); IG# 0.03 K/uL (0.00-0.02); LYMPH % 31.8 %; LYMPH ABS # 3.09 K/uL (1.2-3.4); MEAN CELL VOLUME 86.9 fL (80-100); MEAN CORPUSCULAR HEMOGLOBIN 30.9 pg (25-34); MEAN CORPUSCULAR HGB CONC 35.6 g/dl (32-36); MEAN PLATELET VOLUME 9.2 fL (7.4-10.4); MONO % 7.2 %; NEUT % 55.3 %; NEUT ABS # 5.36 K/uL (1.4-6.5); PLATELET COUNT 291 K/uL (130-400); RED CELL DISTRIBUTION WIDTH CV 12.3 % (11.5-14.5); RED CELL DISTRIBUTION WIDTH SD 39.3 fL (36.4-46.3); WHITE BLOOD COUNT 9.71 K/uL (4.8-10.8)
[2017-12-14 22:33] VITALS: O2SAT 100
[2017-12-14 22:46] LABS: ALBUMIN 4.2 gm/dl (3.4-5.0); ALT/SGPT 49 U/L (12-78); AST/SGOT 34 U/L (15-37); BLOOD UREA NITROGEN 13 mg/dl (7-18); CALCIUM 9.5 mg/dl (8.5-10.1); CARBON DIOXIDE 26 mmol/L (21-32); CREATININE 1.05 mg/dl (0.60-1.40); GLUCOSE 84 mg/dl (70-99); LIPASE 121 U/L (73-393); POTASSIUM 3.4 mmol/L (3.5-5.1); SODIUM 136 mmol/L (136-145)
[2017-12-14 22:51] LABS: ALKALINE PHOSPHATASE 90 U/L (45-117); TOTAL PROTEIN 8.1 gm/dl (6.4-8.2)
--- NOTE | 2017-12-14 23:16 | DIAGNOSTIC IMAGING REPORT ---
CHEST ONE VIEW PORTABLE CLINICAL HISTORY: 52 years-old Male presenting with CHEST PAIN. TECHNIQUE: Portable upright AP view of the chest was obtained. COMPARISON: 10/01/2016. FINDINGS: Cardiomediastinal silhouette normal. No focal opacity. No large effusion or pneumothorax. Degenerative changes of the thoracic spine. Upper abdomen normal. IMPRESSION: 1. No acute cardiopulmonary disease. Electronically signed by: Farhad Hitchcock M.D. 12/14/2017 11:14 PM Dictated Date/Time: 12/14/2017 11:14 PM
[2017-12-15] MEDS ORDERED: AMLO5TAB2 PO (00:13)
--- NOTE | 2017-12-15 00:37 | EMERGENCY ROOM VISIT NOTE ---
History Report prepared by Trace: Tima Odom Under the Supervision of: Dr. Kevin Gavin M.D. First contact with patient: 22:11 Chief Complaint: CARBON MONOXIDE EXPOSURE Stated Complaint: CO History of Present Illness The patient is a 52 year old male who presents to the Emergency Room with complaints of now-resolved headache and dizziness that began shortly prior to arrival. The patient states that he had a water pipe break in the basement of their house. The pipe was back in a "crawl space." The patient and his son got a pump to move the water out of the basement, this pump was fueled with gasoline. The pump was placed in the confined crawl space where the patient and his son were working. He states that he was down in the crawl space for about 10 minutes. They left the pump run while they were eating dinner, and they could smell the exhaust in the kitchen. He then began to develop the headache and dizziness, but did not experience any nausea/vomiting. The patient states that he now feels normal upon arrival to the ED. The carbon dioxide level of the crawl space was 212 ppm, and the upstairs of the house was 60 ppm after ventilating the kitchen. 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 Review of Systems See HPI for pertinent positives and negatives. A total of ten systems were reviewed and were otherwise negative. Past Medical & Surgical Medical Problems: (1) GERD (gastroesophageal reflux disease) Surgical Problems: (1) History of dental surgery (2) History of vasectomy Family History FH: CHF (congestive heart failure) FATHER FH: COPD (chronic obstructive pulmonary disease) MOTHER FH: arrhythmia 1/2 Brother 1/2 Sister FH: atrial fibrillation FATHER Social History Smoking Status: Never Smoker Marital Status: Occupation Status: employed Current/Historical Medications Scheduled Amlodipine Besylate (Norvasc), 5 MG PO DAILY Scheduled PRN Fluticasone Propionate (Nasal) (Flonase Allergy Relief), 1 SPRAY EVELIA DAILY PRN for ALLERGIC REACTION Allergies Coded Allergies: No Known Allergies (Unverified , 12/15/17) Physical Exam Vital Signs Date Time Temp Pulse Resp B/P (MAP) Pulse Ox O2 Delivery O2 Flow Rate FiO2 12/15/17 00:40 59 18 137/87 94 Room Air 12/14/17 23:51 58 20 129/81 98 Non-Rebreather 15.0 12/14/17 22:39 52 20 147/84 98 Non-Rebreather 15.0 12/14/17 22:33 100 Non-Rebreather 15.0 12/14/17 22:17 100 Non-Rebreather 15.0 12/14/17 22:14 52 12/14/17 22:11 100 Non-Rebreather 15.0 12/14/17 22:11 36.6 66 18 146/88 100 Non-Rebreather 15.0 Physical Exam GENERAL: Awake, alert, well-appearing, in no distress HENT: Normocephalic, atraumatic. Dry mucus membranes. EYES: Normal conjunctiva. Sclera non-icteric. NECK: Supple. No nuchal rigidity. FROM. No JVD. RESPIRATORY: Clear to auscultation. CARDIAC: Regular rate, normal rhythm. Extremities warm and well perfused. Pulses equal. ABDOMEN: Soft, non-distended. No tenderness to palpation. No rebound or guarding. No masses. RECTAL: Deferred. MUSCULOSKELETAL: Chest examination reveals no tenderness. The back is symmetrical on inspection without obvious abnormality. There is no CVA tenderness to palpation. No joint edema. LOWER EXTREMITIES: Calves are equal size bilaterally and non-tender. No edema. No discoloration. NEURO: Normal sensorium. No sensory or motor deficits noted. SKIN: No rash or jaundice noted. normal cerebellar function with oezgcw-gm-[id number], alternating palms, [id number] Medical Decision & Procedures ER Provider Diagnostic Interpretation: Radiology results as stated below per my review and radiologist interpretation: CHEST ONE VIEW PORTABLE CLINICAL HISTORY: 52 years-old Male presenting with CHEST PAIN. TECHNIQUE: Portable upright AP view of the chest was obtained. COMPARISON: 10/01/2016. FINDINGS: Cardiomediastinal silhouette normal. No focal opacity. No large effusion or pneumothorax. Degenerative changes of the thoracic spine. Upper abdomen normal. IMPRESSION: 1. No acute cardiopulmonary disease. Electronically signed by: Farhad Hitchcock M.D. 12/14/2017 11:14 PM Dictated Date/Time: 12/14/2017 11:14 PM Laboratory Results 12/14/17 21:35 Red Blood Count 5.02, Mean Corpuscular Volume 86.9, Mean Corpuscular Hemoglobin 30.9, Mean Corpuscular Hemoglobin Concent 35.6, Mean Platelet Volume 9.2, Neutrophils (%) (Auto) 55.3, Lymphocytes (%) (Auto) 31.8, Monocytes (%) (Auto) 7.2, Eosinophils (%) (Auto) 4.8, Basophils (%) (Auto) 0.6, Neutrophils # (Auto) 5.36, Lymphocytes # (Auto) 3.09, Monocytes # (Auto) 0.70, Eosinophils # (Auto) 0.47, Basophils # (Auto) 0.06 12/14/17 21:35 Test 12/14/17 21:35 12/14/17 23:10 White Blood Count 9.71 K/uL (4.8-10.8) Red Blood Count 5.02 M/uL (4.7-6.1) Hemoglobin 15.5 g/dL (14.0-18.0) Hematocrit 43.6 % (42-52) Mean Corpuscular Volume 86.9 fL (80-100) Mean Corpuscular Hemoglobin 30.9 pg (25-34) Mean Corpuscular Hemoglobin Concent 35.6 g/dl (32-36) Platelet Count 291 K/uL (130-400) Mean Platelet Volume 9.2 fL (7.4-10.4) Neutrophils (%) (Auto) 55.3 % Lymphocytes (%) (Auto) 31.8 % Monocytes (%) (Auto) 7.2 % Eosinophils (%) (Auto) 4.8 % Basophils (%) (Auto) 0.6 % Neutrophils # (Auto) 5.36 K/uL (1.4-6.5) Lymphocytes # (Auto) 3.09 K/uL (1.2-3.4) Monocytes # (Auto) 0.70 K/uL (0.11-0.59) Eosinophils # (Auto) 0.47 K/uL (0-0.5) Basophils # (Auto) 0.06 K/uL (0-0.2) RDW Standard Deviation 39.3 fL (36.4-46.3) RDW Coefficient of Variation 12.3 % (11.5-14.5) Immature Granulocyte % (Auto) 0.3 % Immature Granulocyte # (Auto) 0.03 K/uL (0.00-0.02) Anion Gap 9.0 mmol/L (3-11) Est Creatinine Clear Calc Drug Dose 92.2 ml/min Estimated GFR () 94.8 Estimated GFR (Non- 81.8 BUN/Creatinine Ratio 12.6 (10-20) Calcium Level 9.5 mg/dl (8.5-10.1) Magnesium Level 2.0 mg/dl (1.8-2.4) Total Bilirubin 0.7 mg/dl (0.2-1) Direct Bilirubin 0.1 mg/dl (0-0.2) Aspartate Amino Transf (AST/SGOT) 34 U/L (15-37) Alanine Aminotransferase (ALT/SGPT) 49 U/L (12-78) Alkaline Phosphatase 90 U/L (45-117) Troponin I < 0.015 ng/ml (0-0.045) Total Protein 8.1 gm/dl (6.4-8.2) Albumin 4.2 gm/dl (3.4-5.0) Lipase 121 U/L (73-393) Carboxyhemoglobin 0.0 % THgb Lactic Acid Level 1.3 mmol/L (0.4-2.0) Laboratory results reviewed by me Medications Administered Medications (Trade) Dose Ordered Sig/Kimberly Route Start Time Stop Time Status Last Admin Dose Admin Sodium Chloride 1,000 ml @ 999 mls/hr Q1H1M STAT IV 12/14/17 22:23 12/14/17 23:23 DC 12/14/17 22:23 999 MLS/HR ECG Per My Interpretation Indication: other (Dizzy/Headache) Rate (beats per minute): 50 Rhythm: sinus bradycardia Findings: other (Normal [place], No ALLYN/STD) ED Course 7: The patient was evaluated in room B7. A complete history and physical exam was performed. 2223: Ordered Sodium Chloride 1000 mL @ 999 mL/hr IV. 0041: I reevaluated the patient. Discussed results and discharge instructions: He verbalized understanding and agreement. The patient is ready for discharge. Medical Decision I reviewed the patient's past medical history, medications, and the nursing notes as described above. Differential diagnosis: Etiologies such as migraine headache, meningitis, sinusitis, CO exposure, ICH, SAH, infection, tumor, headache, sinus thrombosis, arterial dissection, as well as others were entertained. The patient is a 52 y/o gentleman who presents to the emergency department with with MARIE in the setting of CO exposure per HPI. On arrival the patient is well- appearing, in NAD AFVSS. 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 Neuro intact including normal cerebellar function with efgueg-mc-xsfe, alternating palms, lbfz-py-gssq. EKG unremarkable. CO level zero. Labs otherwise unremarkable including WBC, Lactate, Troponin wnl. Patient treated with NRB for additional 2 hours in ED. Continued to be well- appearing. Source removed from home and so safe to return. Plan for pcp f/u. Findings and plan for follow-up reviewed with patient. Patient agreeable and d/c 'd per discharge instructions. Medication Reconcilliation Current Medication List: was personally reviewed by me Blood Pressure Screening Patient's blood pressure: Elevated blood pressure Blood pressure disposition: Elevated BP felt to be situational Impression Primary Impression: Carbon monoxide poisoning syndrome Scribe Attestation The scribe's documentation has been prepared under my direction and personally reviewed by me in its entirety. I confirm that the note above accurately reflects all work, treatment, procedures, and medical decision making performed by me. Departure Information Dispostion Home / Self-Care Referrals No Doctor, Assigned (PCP) Patient Instructions [facility], Poisoning Carbon Monoxide Additional Instructions Please follow up with your primary care physician in the next 1-3 days for re- evaluation. Your symptoms are most likely due to your exposure to carbon monoxide. Otherwise, your exam, EKG, chest xray, and lab results did not show signs of an emergent condition at this time. Drink plenty of fluids to ensure hydration. Return to the emergency department for worsening symptoms as described in the accompanying instructions.
[2017-12-15 00:40] VITALS: BP 137/87; PULSE 59; O2SAT 94
== END 2017-12-15 00:42 | disposition home or self-care (01) ==
LOC: EDBD 22:05 → C.EDB 22:06
DX: T58.8X1A Toxic effect of carbon monoxide from other source, accidental (unintentional), initial encounter (principal); Y92.018 Other place in single-family (private) house as the place of occurrence of the external cause; K21.9 Gastro-esophageal reflux disease without esophagitis; Z79.899 Other long term (current) drug therapy

== ENCOUNTER 2020-03-29 11:06 | Observation (INO) ==
--- NOTE | 2020-03-28 09:45 | Anesthesiology Consultation ---
Date of Service March 28, 2020 Assessment & Plan (1) Encounter for pre-operative examination: Chart Review Chart Review: Acceptable Risk for Surgery (pending preop Covid testing and anesthesia review of EKG ) and Patient NOT seen in Pre Admission Testing Preop EKG has significant artifact notedwill leave to anesthesiologist discretion if repeat EKG needed day of surgery. Per nursing assessment 03/28/2020, patient resides in [facility]. Traveled to [facility] 03/24/20 for ( was small in size and all participants wore masks). No known Covid positive contacts or Covid related symptoms. Pt had preop Covid testing done 03/27/20= results pending. History Surgery Operation Date: 03/29/20 12:55 Proposed Procedures p L2-L3 Decompression and Fusion; Spinal Cord Monitoring - Venu Beltran DO Height/Weight Height: 5 ft 9 in Weight: 90.718 kg Allergies Allergy/AdvReac Type Severity Reaction Status Date / Time No Known Allergies Allergy Unverified 03/28/20 08:59 Medications Home Medications Medication Instructions Recorded Confirmed Last Taken fluticasone propionate 1 spray INTRANASAL DAILY PRN #0 10/01/16 03/28/20 01/22/20 amlodipine [Norvasc] 5 mg PO QAM #0 tab 12/15/17 03/28/20 01/22/20 lidocaine 1 patch TOP DAILY PRN #15 ea 01/22/20 03/28/20 Unknown pantoprazole 40 mg PO QAM 01/22/20 03/28/20 01/22/20 Past Medical History Medical History GERD (gastroesophageal reflux disease) Herniated disc LUMBAR Hypertension Past Surgical History Surgical History History of vasectomy Hx of colonoscopy Social History Smoking Status: Never smoker Do You Dip or Chew Tobacco: No Hx Alcohol Use: Yes Alcohol type: beer alcohol intake frequency: holidays/special occasions only Hx Substance Use: No substance use type: does not use Testing Laboratory Results Laboratory Tests 03/27/20 03/27/20 03/27/20 15:03 15:03 15:03 WBC 8.80 Hgb 16.2 Hct 45.6 Plt Count 287 PT 10.3 INR 1.0 Sodium 137 Potassium 3.7 Chloride 105 Carbon Dioxide 24 BUN 15 Creatinine 1.29 Glucose 109 H 03/27/20= UA: negative Electrocardiogram Date: 03/27/20 Findings: + NSR @ (80) Poor data quality, interpretation may be adversely affected Chest X-Ray Date: 03/27/20 Findings: + NAD Stress Test Date: 10/02/16 Type: exercise (Stress echo) Resting EF: 60 to 65% Resting LV Function: normal Resting RWMA: + none Normal exercise stress echo. No echocardiographic or EKG evidence of myocardial ischemia having achieved heart rate adequate for diagnostic purposes. Exercise capacity is above average. MPHR =97%. 12.5 METS achieved.
[~2020-03-29 11:06] MED LIST changes: +ACETAMINOPHEN 500 MG TAB PO SCH; +CEFAZOLIN 2000MG 2,000 MG/15 ML SYR IV SCH; +CeleBREX 200 MG CAP PO SCH; -FLUT0.15 NAE; +GABAPENTIN 900 MG DOSE PO SCH; +LR 15ML/HR IV SCH; -NRV5 PO; -OMEP20CA59 PO
--- NOTE | 2020-03-29 11:26 | History & Physical Bridge Note ---
Date of Service March 29, 2020 History & Physical Bridge Note I have examined the patient, reviewed the History & Physical and in the interval since the performance of the History & Physical I have noted the following changes of clinical significance: no changes noted
--- NOTE | 2020-03-29 11:27 | History & Physical Report ---
Date of Service March 29, 2020 Assessment & Plan (1) Lumbar disc herniation with radiculopathy: Admission and Anticipated Discharge Date Admission Date: L2-L3 decompression fusion History of Present Illness Chief Complaint: Back and right leg pain Primary Care Provider: Farhad Larsen MD This is a 54-year-old male who presents with worsening back and right leg pain. After failing extensive course of nonoperative care is here for surgical intervention. Allergies Allergy/AdvReac Type Severity Reaction Status Date / Time No Known Allergies Allergy Unverified 03/28/20 08:59 Home Medications Home Medications Medication Instructions Recorded Confirmed Type fluticasone propionate 1 spray INTRANASAL DAILY PRN #0 10/01/16 03/28/20 History amlodipine [Norvasc] 5 mg PO QAM #0 tab 12/15/17 03/28/20 History lidocaine 1 patch TOP DAILY PRN #15 ea 01/22/20 03/28/20 Rx pantoprazole 40 mg PO QAM 01/22/20 03/28/20 History Past Med/Surg History Medical History GERD (gastroesophageal reflux disease) Herniated disc LUMBAR Hypertension Surgical History History of vasectomy Hx of colonoscopy Social History (Updated 01/22/20 @ 11:07 by Eyal Marr MD) Smoking Status: Never smoker Second Hand Exposure: No; Do You Dip or Chew Tobacco: No; Tobacco Cessation Education Requested by Patient: No Hx Alcohol Use: Yes Alcohol type: beer Hx Substance Use: No Preferred Language: Swedish Communication Ability: Effective Potato Chip Maker Required: No Beliefs That Will Affect Care: None Current Living Situation: Spouse Other Information That Helps Us Care for You: No Feels Safe at Home: Yes Safety Concerns: Feels Safe At This Time Physical Exam Physical Exam: Patient is alert and oriented with weakness to the right fatmata dricep. Heart regular rate and rhythm. Lungs clear to auscultation.
[2020-03-29] MEDS ORDERED: ROCURONIUM BROMIDE 10 MG/ML 5 ML VIAL IV ONE (13:29)
[2020-03-29] MEDS ORDERED: PROPOFOL IV EMULSION 10 MG/ML 20 ML VIAL IV ONE (13:29)
[2020-03-29] MEDS ORDERED: MIDAZOLAM HCL 1 MG/ML 2ML VIAL ONE (13:29)
[2020-03-29] MEDS ORDERED: ONDANSETRON INJ 2 MG/ML 2 ML VIAL ONE (13:29)
[2020-03-29] MEDS ORDERED: LIDOCAINE HCL 2% 2 ML VIAL/AMP(20MG/ML) INFIL ONE (13:29)
[2020-03-29] MEDS ORDERED: GLYCOPYRROLATE 0.2 MG/ML VIAL ONE (13:29)
[2020-03-29] MEDS ORDERED: NEOSTIGMINE METHYLSULFATE 5 MG/5 ML SYR ONE (13:29)
[2020-03-29] MEDS ORDERED: DEXAMETHASONE SOD INJ 4 MG/ML VIAL ONE (13:29)
[2020-03-29] MEDS ORDERED: HYDROmorphone INJ 2 MG/ML SYR/VIAL ONE (13:30)
[2020-03-29] MEDS ORDERED: BACITRACIN INJ 50,000 UNIT VIAL ONE (13:31)
[2020-03-29] MEDS ORDERED: BUPIVACAINE 0.25% 30 ML VIAL ONE ×2 (13:32→13:46)
[2020-03-29] MEDS ORDERED: PROMETHAZINE HCL 12.5 MG in SODIUM CHLORIDE 0.9% 50 ML IV PRN ×2 (13:38→17:23)
[2020-03-29] MEDS ORDERED: ePHEDrine sulfate 50 MG/ML AMP IV PRN (13:38)
[2020-03-29] MEDS ORDERED: fentaNYL citrate 100 MCG/2 ML VIAL IV PRN (13:38)
[2020-03-29] MEDS ORDERED: HYDROmorphone INJ 2 MG/ML SYR/VIAL IV PRN (13:38)
[2020-03-29] MEDS ORDERED: ONDANSETRON INJ 2 MG/ML 2 ML VIAL IV PRN ×2 (13:38→17:23)
[2020-03-29] MEDS ORDERED: ATROPINE SULFATE 0.1 MG/ML 10ML SYR IV PRN (13:38)
[2020-03-29] MEDS ORDERED: EPINEPHrine INJ 1 MG/ML AMP ONE (13:47)
[2020-03-29] MEDS ORDERED: FLOSEAL HEMOSTATIC MATRIX 10ML TOP ONE (15:21)
[2020-03-29] MEDS ORDERED: SURGICEL ABSORB HEMOSTAT 2IN X 14IN TOP ONE (15:22)
--- NOTE | 2020-03-29 15:29 | Operative Report ---
Post Operative Report Pre & Post Diagnosis Operation Date: 03/29/20 12:55 Pre-Op Diagnosis: Interverebral Disc Disorders with Radiuculopathy Post-Op Diagnosis: Interverebral Disc Disorders with Radiuculopathy I identified the patient and participated in the time-out.: Yes Procedure Operation Date: 03/29/20 12:55 Actual Procedures #1 lumbar decompression with medial facetectomy foraminotomies L2-L3. #2 posterior spinal fusion L2-L3. #3 placement posterior instrumentation L2-L3. #4 interbody fusion L2-L3. #5 placement peek cage 13 x 26 mm at L2-L3. #6 placement of locally harvested morselized autograft in the posterior gutters. #7 placement infuse collagen sponge, master graft in the posterior gutters and ostial amp and interbody space. Surgeon Venu Beltran DO Dosier Operator Rosio Rogers Estimated Blood Loss 100 Findings Consistent with Post-Op Diagnosis Specimens None Indications This is a 54-year-old male who presents with above-mentioned diagnosis after failing a course of nonoperative care having continued neurologic decline and pain we elected to go to image procedure. Description of Procedure Patient was met with preoperatively case discussed all questions addressed. At this point patient was taken back to operative suite underwent intubation placed in a prone position the Caesar table on top of the Mario frame. All bony prominences well-padded eyes inspected to ensure no external pressure placed upon them. This point the lumbar spine was prepped and draped in a sterile fashion. Sharp dissection with the assistance of Bovie cautery was performed down to and exposing the lamina and transverse processes of L2 and L3 bilaterally. From colesevelam fashion laminectomy of L to was performed including bilateral medial facetectomies and complete facetectomy on the right to expose a severely compressed exiting L to nerve root. Disc material was noted both in the axillary region extending out to the lateral portion of the nerve root. It was removed in its entirety to decompress the nerve root. Pedicle screw was then placed in L2 and L3 bilaterally with assistance of fluoroscopy and appropriately sized ariana placed. By way of a trans-foramen approach on the right a complete discectomy was performed endplates curetted to subcortical bleeding bone and a 13 x 26 mm peek cage filled osteo-bone graft tapped position. The rods were then locked in final position bilaterally. The transverse processes of L2 and L3 burred to subcortical bleeding bone. Infuse collagen sponge master graft local autograft placed in the posterior gutters. 15 round LATASHA drain inserted. The incision was then closed with 1 Vicryl in the fascia 2-0 Vicryl subcutaneously and 4 Monocryl for final skin closure. Steri- Strip sterile dressings placed. Patient waken taken to PACU stable condition. Please note spinal cord monitoring was utilized for the procedure no changes noted. Lastly Rosio Rogers was present for the procedure involved in complex portions of the surgery and final skin closure. I attest to the content of the Intraoperative Record and any orders documented therein. Any exceptions are noted below.
--- NOTE | 2020-03-29 15:33 | Fluoroscopy Report ---
INTRAOPERATIVE RADIOGRAPHS CLINICAL HISTORY: L2-L3 spinal fusion. Fluoroscopy time: 12 seconds. FINDINGS: 2 spot fluoroscopic views of the lumbar spine are presented. There has been discectomy at L 2-L3 with laminectomy and posterior fusion. Interpedicular screws are present at both levels. The ort hopedic hardware appears intact. IMPRESSION: Intraoperative images from L2-L3 spinal fusion as above. Electronically signed by: James Verma M.D. 03/29/2020 3:32 PM
--- NOTE | 2020-03-29 16:02 | Anesthesiology Progress Note ---
Date of Service March 29, 2020 Anesthesia Post Procedure Vital Signs Vital Signs: Temp Pulse Pulse Resp BP BP Pulse Ox 03/29/20 16:00 76 16 141/89 H 98 03/29/20 15:50 77 14 142/84 H 96 03/29/20 15:43 36.8 C 87 12 142/90 H 97 03/29/20 11:49 37.1 C 68 18 166/89 H 97 Pain Intensity Right Back: Pain Intensity: 4 Transfer of Care Handoff Completed per policy Notes Mental Status: alert / awake / arousable and participated in evaluation Patient Amnestic to Procedure: Yes Nausea / Vomiting: adequately controlled Pain: adequately controlled Airway Patency, RR, SpO2: stable & adequate BP & HR: stable & adequate Hydration State: stable & adequate Anesthetic Complications: no major complications apparent and Pt Satisfied with anesthetic care
[2020-03-29] MEDS ORDERED: TRAMADOL HCL 50 MG TABLET PO PRN (17:23)
[2020-03-29] MEDS ORDERED: DO NOT ADMINISTER PNEUMOCOCCAL VACCINE PRN (17:23)
[2020-03-29] MEDS ORDERED: HYDROmorphone INJ 0.5 MG/0.5 ML SYR IV PRN (17:23)
[2020-03-29] MEDS ORDERED: HYDROmorphone INJ 1 MG/ML SYRINGE IV PRN (17:23)
[2020-03-29] MEDS ORDERED: NALOXONE HCL 0.4 MG/1 ML VIAL/CARP IV PRN (17:23)
[2020-03-29] MEDS ORDERED: METOCLOPRAMIDE HCL INJ 5 MG/ML 2 ML VIAL IV PRN (17:23)
[2020-03-29] MEDS ORDERED: SOD PHOSPHATE/SOD BIPHOSPHATE ENEMA 132 ML BTL PR PRN (17:23)
[2020-03-29] MEDS ORDERED: MAGNESIUM HYDROXIDE SUSP 30 ML UDC PO PRN (17:23)
[2020-03-29] MEDS ORDERED: FAMOTIDINE 20 MG TAB PO PRN (17:23)
[2020-03-29] MEDS ORDERED: ACETAMINOPHEN 1,000 MG/100 ML VIAL IV PRN (17:23)
[2020-03-29] MEDS ORDERED: bisacodyL 10 MG SUPP PR PRN (17:23)
[2020-03-29] MEDS ORDERED: ONDANSETRON 4 MG OD TAB PO PRN (17:23)
[2020-03-29] MEDS ORDERED: DO NOT ADMINISTER FLU VACCINE PRN (17:23)
[2020-03-29] MEDS ORDERED: ALUMINUM/MAGNESIUM SUSP 30 ML UDC PO PRN (17:23)
[2020-03-29] MEDS ORDERED: LORazepam 0.5 MG TAB PO PRN (17:23)
[2020-03-29] MEDS ORDERED: LORazepam 0.5 MG/1 ML VIAL IV PRN (17:23)
[2020-03-29] MEDS: OXYCODONE HCL IR 5 MG TAB (IMMEDIATE RELEASE) PO PRN ×2 (17:36→21:34)
[2020-03-29] MEDS: KETOROLAC 30 MG/ML VIAL IV SCH (17:39)
[2020-03-29] MEDS: CEFAZOLIN 2000MG 2,000 MG/15 ML SYR IV SCH (21:35)
[2020-03-29] MEDS: DOCUSATE SODIUM/SENNA 50/8.6MG TAB PO SCH (21:35)
[2020-03-29] MEDS: LACTATED RINGER'S 1,000 ML IV SCH (21:46)
[2020-03-30] MEDS: KETOROLAC 30 MG/ML VIAL IV SCH ×3 (00:41→12:16)
[2020-03-30] MEDS: OXYCODONE HCL IR 5 MG TAB (IMMEDIATE RELEASE) PO PRN ×4 (01:24→21:11)
[2020-03-30 05:37] LABS: Hematocrit (blood only) 37.8 % (42-52); Hemoglobin 13.1 g/dL (14.0-18.0); Immature Granulocytes # (auto) 0.04 K/uL (0.00-0.02); Immature Granulocytes % (auto) 0.4 %; Lymphocytes # (auto) 0.77 K/uL (1.2-3.4); Lymphocytes % (auto) 6.8 %; Mean Corpuscular Hemoglobin 31.3 pg (25-34); Mean Corpuscular Hgb Conc 34.7 g/dL (32-36); Mean Corpuscular Volume 90.2 fL (80-100); Mean Platelet Volume 9.1 fL (7.4-10.4); Monocytes % (auto) 3.5 %; Neutrophils # (auto) 10.16 K/uL (1.4-6.5); Neutrophils % (auto) 89.3 %; Platelet Count 263 K/uL (130-400); RDW Coefficient of Variation 12.2 % (11.5-14.5); RDW Standard Deviation 40.3 fL (36.4-46.3); Red Blood Count 4.19 M/uL (4.7-6.1); White Blood Count 11.37 K/uL (4.8-10.8)
[2020-03-30 06:02] LABS: BUN Creatinine Ratio 9.1 (10-20); Calcium 8.7 mg/dl (8.5-10.1); Creatinine Clr Calc Pharmacy 91.5 ml/min; Est GFR (African American) 94.6; Est GFR (Non-African American) 81.6; Potassium 4.3 mmol/L (3.5-5.1)
[2020-03-30] MEDS: CEFAZOLIN 2000MG 2,000 MG/15 ML SYR IV SCH (06:08)
[2020-03-30] MEDS: POLYETHYLENE (MIRALAX) 17 GM PACK PO SCH ×4 (06:08→23:53)
[2020-03-30] MEDS: LACTATED RINGER'S 1,000 ML IV SCH (06:24)
[2020-03-30] MEDS: PANTOprazole 40 MG TAB PO SCH (07:51)
[2020-03-30] MEDS: AMLODIPINE BESYLATE 5 MG TAB PO SCH (07:51)
--- NOTE | 2020-03-30 08:12 | Anesthesiology Progress Note ---
Date of Service March 30, 2020 Anesthesia Post Procedure Vital Signs Vital Signs: Temp Pulse Pulse Pulse Resp BP BP 03/30/20 07:44 36.7 C 73 18 174/79 H 03/30/20 02:27 36.5 C 57 L 16 152/81 H 03/29/20 23:32 36.5 C 64 16 155/79 H 03/29/20 20:00 36.4 C L 72 18 131/73 03/29/20 19:05 36.5 C 84 18 119/64 03/29/20 17:59 36.3 C L 69 18 146/84 H 03/29/20 17:25 63 15 137/83 03/29/20 16:56 36.6 C 65 15 143/77 H 03/29/20 16:45 71 16 144/78 H 03/29/20 16:30 68 16 138/73 03/29/20 16:20 69 16 143/74 H 03/29/20 16:10 36.7 C 68 16 144/84 H 03/29/20 16:00 76 16 141/89 H 03/29/20 15:50 77 14 142/84 H 03/29/20 15:43 36.8 C 87 12 142/90 H 03/29/20 11:49 37.1 C 68 18 166/89 H Pulse Ox 03/30/20 07:44 98 03/30/20 02:27 97 03/29/20 23:32 95 03/29/20 20:00 96 03/29/20 19:05 96 03/29/20 17:59 95 03/29/20 17:25 97 03/29/20 16:56 96 03/29/20 16:45 94 03/29/20 16:30 94 03/29/20 16:20 95 03/29/20 16:10 98 03/29/20 16:00 98 03/29/20 15:50 96 03/29/20 15:43 97 03/29/20 11:49 97 Pain Intensity Right Back: Pain Intensity: 5 Left Back: Pain Intensity: 7 Notes Mental Status: alert / awake / arousable and participated in evaluation Patient Amnestic to Procedure: Yes Nausea / Vomiting: adequately controlled Pain: adequately controlled Airway Patency, RR, SpO2: stable & adequate BP & HR: stable & adequate Hydration State: stable & adequate Anesthetic Complications: no major complications apparent and Pt Satisfied with anesthetic care
--- NOTE | 2020-03-30 12:15 | Orthopedic Progress Note ---
Date of Service March 30, 2020 Assessment & Plan (1) Lumbar disc herniation with radiculopathy: Admission and Anticipated Discharge Date Admission Date: March 29, 2020 At this time we will continue physical therapy monitor his LATASHA operatively discharge home tomorrow. Subjective Back pain is controlled leg symptoms markedly improved. Physical Exam Physical Exam: Patient is good strength testing appears comfortable. Results & Data ([facility]) Vital Signs (Past 12 Hours) Vital Signs Temp Pulse Resp BP Pulse Ox 03/30/20 12:13 36.7 C 63 16 185/78 H 97 03/30/20 07:44 36.7 C 73 18 174/79 H 98 03/30/20 02:27 36.5 C 57 L 16 152/81 H 97
--- NOTE | 2020-03-30 13:47 | Hospitalist Consultation ---
Date of Consultation March 30, 2020 Assessment & Plan (1) Lumbar disc herniation with radiculopathy: - POD#1 L2-L3 decompression and fusion by Dr. Beltran - activity and wound care orders as per ortho - pain control with bowel regimen - PT/OT - monitor H/H for acute blood loss anemia and transfuse blood products PRN - EBL 100 cc, LATASHA output 250 cc to date; Hgb stable 13.1 (2) Hypertension: -Elevated BP this morning 185/78 -Improved after administration of IV Toradol -Episodic elevation likely secondary to pain -Continue home dose of amlodipine 5 mg daily -Continue to monitor BP, making adjustments in medications as needed -Schedule outpatient nurse visit for BP check next week (3) DVT prophylaxis: -Teds/SCDs as per spine Ortho Thank you for this consultation. We will follow the patient with you during their hospital stay. You can reach a member of the [facility] Hospitalist Team 23/02 via pager @ [phone]. Supervising Physician Co-Signing Physician Notes Attending Addendum: care coordinated with FELICIA Grey please refer to her notes for full details, I agree with her notes patient seen and examined, records reviewed by myself as well on exam, patient seen resting in bed, comfortable states he feels fine overall denies chest pain, dyspnea, headache, dizziness ambulated today with no problems no other symptoms VS noted and reviewed oriented , not in distress, speaks in sentences with no effort nor accessory muscle use normal rate, regular rhythm, no murmurs clear breath sounds bilaterally non distended, soft, nontender no bipedal edema, erythema, warmth no neuro deficits WBC 11.3 Hg 13.1 Crea 1.0 ASSESSMENT AND PLAN S/P BACK SURGERY monitor H&H monitor BP HYPERTENSION elevated this AM improving after taking usual Norvasc 5mg po daily monitor CONSTIPATION no nausea/vomiting Milk of Mg PRN added to Senokot S, Miralax monitor other diagnoses and plan of care as per SARA Lassiter MD History of Present Illness Reason for Consultation: HTN Requesting Physician: Dr. Beltran Attending Physician: Dr. Bhagat History of Present Illness 54-year-old male with PMH HTN, GERD, and other problems listed below who is POD #1 L2-L3 decompression and fusion by Dr. Beltran. Postoperatively, the patient is doing well. He reports his pain is well controlled. He denies any numbness or tingling to lower extremities. He reports that late this morning, he started to feel flushed in the face and also developed a mild headache. He had the nurse check his blood pressure which was found to be elevated at 185/78. Nurse reports that patient had just ambulated back from the bathroom. Patient was medicated with Toradol and BP has since improved to 139/74. Patient denies chest pain or shortness of breath. No lightheadedness, dizziness, diaphoresis, syncopal events. Denies abdominal pain or nausea. Is voiding without difficulty. No flatus or bowel movement yet. Allergies Allergy/AdvReac Type Severity Reaction Status Date / Time No Known Allergies Allergy Unverified 03/29/20 11:36 Home Medications Home Medications Medication Instructions Recorded Confirmed Type fluticasone propionate 1 spray INTRANASAL DAILY PRN #0 10/01/16 03/29/20 History amlodipine [Norvasc] 5 mg PO QAM #0 tab 12/15/17 03/29/20 History lidocaine 1 patch TOP DAILY PRN #15 ea 01/22/20 03/29/20 Rx pantoprazole 40 mg PO QAM 01/22/20 03/29/20 History oxycodone 5 mg PO Q6H PRN #20 tab 03/30/20 Rx tramadol 50 mg PO Q6H PRN #20 tab 03/30/20 Rx Patient History Medical History GERD (gastroesophageal reflux disease) Herniated disc LUMBAR Hypertension Surgical History History of dental surgery History of vasectomy Hx of colonoscopy Family History Mother Hypertension Father Diabetes Social History Smoking Status: Never smoker Second Hand Exposure: No; Do You Dip or Chew Tobacco: No; Tobacco Cessation Education Requested by Patient: No Hx Alcohol Use: Yes Alcohol type: beer Hx Substance Use: No Preferred Language: Yoruba Communication Ability: Effective Continuous Improvement Engineer Required: No Beliefs That Will Affect Care: None marital status: Current Living Situation: Spouse Other Information That Helps Us Care for You: No Feels Safe at Home: Yes Safety Concerns: Feels Safe At This Time Review of Systems Review of Systems: ROS per HPI, all other systems reviewed and negative Physical Exam Constitutional: WD/WN, vitals as above Eyes: PERRL, conjunctivae normal, anicteric sclerae ENMT: external ear and nose normal, oropharynx normal Respiratory: normal respiratory effort, lungs clear to auscultation Cardiovascular: Rate/Rhythm: regular rate and regular rhythm Vessels: normal peripheral pulses Extremities: no edema Gastrointestinal (Abdomen): normal bowel sounds, soft, nontender, no hepatosplenomegaly Musculoskeletal: no cyanosis or clubbing, extremities motor strength 5/5 S/p back surgery, surgical dressing dry and intact, drain in place draining serosanguineous drainage, pedal pushes and pulls strong bilaterally Skin: no rashes, warm and dry Neurologic: PERRL, EOMI, accommodation nl, no face palsy, no dysarthria Psychiatric: A+Ox3, euthymic affect Results & Data Results & Data ([facility]) Vital Signs (Past 12 Hours) Vital Signs Temp Pulse Resp BP Pulse Ox 03/30/20 12:58 139/74 03/30/20 12:13 36.7 C 63 16 185/78 H 97 03/30/20 07:44 36.7 C 73 18 174/79 H 98 03/30/20 02:27 36.5 C 57 L 16 152/81 H 97 Laboratory Results Short CBC 03/30/20 Range/Units 05:08 WBC 11.37 H (4.8-10.8) K/uL Hgb 13.1 L (14.0-18.0) g/dL Hct 37.8 L (42-52) % Plt Count 263 (130-400) K/uL BMP 03/30/20 05:08 Sodium 135 L Potassium 4.3 Chloride 104 Carbon Dioxide 26 BUN 9 Creatinine 1.04 Glucose 136 H Calcium 8.7
[2020-03-30] MEDS ORDERED: MAGNESIUM HYDROXIDE SUSP 30 ML UDC PO PRN (16:22)
[2020-03-30] MEDS: DOCUSATE SODIUM/SENNA 50/8.6MG TAB PO SCH (21:08)
[2020-03-30] MEDS: ACETAMINOPHEN 500 MG TAB PO PRN (23:52)
[2020-03-31] MEDS: OXYCODONE HCL IR 5 MG TAB (IMMEDIATE RELEASE) PO PRN ×2 (01:18→06:39)
[2020-03-31] MEDS: POLYETHYLENE (MIRALAX) 17 GM PACK PO SCH (05:25)
[2020-03-31 06:06] LABS: Hematocrit (blood only) 35.8 % (42-52); Hemoglobin 12.1 g/dL (14.0-18.0); Mean Corpuscular Hemoglobin 31.2 pg (25-34); Mean Corpuscular Hgb Conc 33.8 g/dL (32-36); Mean Corpuscular Volume 92.3 fL (80-100); Mean Platelet Volume 8.9 fL (7.4-10.4); Platelet Count 201 K/uL (130-400); RDW Coefficient of Variation 12.5 % (11.5-14.5); RDW Standard Deviation 42.5 fL (36.4-46.3); Red Blood Count 3.88 M/uL (4.7-6.1); White Blood Count 8.02 K/uL (4.8-10.8)
[2020-03-31 06:40] LABS: BUN Creatinine Ratio 7.5 (10-20); Calcium 8.8 mg/dl (8.5-10.1); Creatinine Clr Calc Pharmacy 99.2 ml/min; Est GFR (African American) 104.2; Est GFR (Non-African American) 89.9
[2020-03-31] MEDS: AMLODIPINE BESYLATE 5 MG TAB PO SCH (07:49)
[2020-03-31] MEDS: PANTOprazole 40 MG TAB PO SCH (07:50)
[2020-03-31] MEDS ORDERED: DEXAMETHASONE SOD PHOSPHATE 8 MG in SYRINGE 0 ML IV SCH (09:00)
--- NOTE | 2020-03-31 09:57 | Discharge Summary ---
Date of Service March 31, 2020 Admission HPI Per Admitting Provider This is a 54-year-old male who presents with worsening back and right leg pain. After failing extensive course of nonoperative care is here for surgical intervention. Principal Diagnosis Lumbar disc condition with radiculopathy and neuro deficit Discharge Data Allergies Allergy/AdvReac Type Severity Reaction Status Date / Time No Known Allergies Allergy Unverified 03/29/20 11:36 Consultations 03/29/20 17:23 Consult Case Management - Discharge Planning Routine 03/30/20 12:24 Consult Hospitalist Routine Procedures Performed Operation Date: 03/29/20 12:55 Actual Procedures p L2-L3 Decompression and Fusion and Interbody ; Spinal Cord Monitoring(Not Applicable) - Venu Beltran DO Ordered Studies 03/29/20 12:55 FL fluoroscopy <1hr Routine FL lumbar spine 2-3V Routine Hospital Course (1) Lumbar disc herniation with radiculopathy: Patient went lumbar decompression fusion tolerated this well was taken to orthopedic for postop labor postop day 1 he was up and ambulating postop day #2 strength is excellent pain well controlled LATASHA drain decreasing probably. Subsequently discharged home. Discharge orders and instructions from the chart for further review. 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 You may walk to your tolerance. It is good exercise for your legs and back. Expect some back and intermittent leg aches and pains. 2. You may perform "counter-top" level activities (make a sandwich, venancio with a project, etc.). 3. No bending or lifting of more than 10 pounds or back twisting of any nature (roll like a log when turning in bed). 4. You may ride in a car for 20-30 minutes at a time. No driving until after your first visit with your doctor. 5. Frequent changes of position and restricting sitting to 30 minutes at a time will help limit the amount of back spasms and stiffness you may experience. 6. You may discontinue the use of ambulatory aids (cane, crutches, etc.) once your strength and confidence allow. 7. You may inner tube tuber machine operator the shower and let water strike your incision when you arrive home at least once daily. Do not take a tub bath, sit in a hot tub or go into a swimming pool until after your first recheck in the office. SPECIAL CARE INSTRUCTIONS: VERY IMPORTANT TO READ AND REVIEW A. Your surgical incision has been closed with a cosmetic suture under the skin that will dissolve in about 6 weeks. In 14 days, you can use a pair of clean scissors and cut the suture that is left outside of the skin at the ends of your incision. 1. The small skin tapes can be removed 7 days after surgery if they have not fallen off by that point. 2. You may keep the wound open to air as much as possible to promote healing after post-op day number 5 unless told otherwise by your doctor. 3. If you think the wound looks like it is becoming infected (redness or worsening drainage) and/or you are experiencing fever, chill or worsening back pain and muscle spasms, contact the office so that we may evaluate you as soon as possible. B. Complications are uncommon, but please contact us if you have any signs or symptoms of: 1. wound infection (fever higher than 102.5 degrees F, redness, separation of wound, drainage, or increasing pain from the incision) 2. blood clots in legs (pain, swelling, redness and warmth in legs) 3. urinary tract infection (fever higher than 102.5 degrees F, burning upon urination or increased frequency of urination) 4. nerve problems (inability to walk on your toes or heels, numbness, loss of bowel or bladder control) 5. any other symptoms that concern you C. Please call the office at if you have any concerns or questions about your operation or recovery. D. No smoking! Smoking drastically decreases the chance of a solid fusion. E. Do not take any anti-inflammatory medications (Indocin, Advil, Motrin, Aspirin, Naprosyn, etc.) as these may inhibit the chance of a solid fusion. Tylenol is okay to take for pain. MANAGING PAIN AFTER SPINAL SURGERY 1. Narcotic medication is intended for short-term use and will be provided for surgical pain. Surgical pain usually lasts for a period of 4-6 weeks. Narcotic medication includes Percocet, Vicodin, Darvocet, Tylenol #3 or Lortab. 2. Longer-term pain is more appropriately treated with non-narcotic medication such as Tylenol ES. 3. Muscle spasm is not appropriately treated with narcotics. Muscle relaxers such as Soma, Flexeril or Skelaxin can be used along with Tylenol ES. 4. Remember that we all live with some "aches and pains". This is not unusual or uncommon after an injury or as we get older. a. Back pain is expected and may include muscle spasms for 4 to 6 weeks after surgery. The pain should gradually improve. If the pain worsens for no apparent reason, please contact the office. b. Intermittent leg pain may also be experienced and should not be concerned about unless it worsens for no apparent reason. If so, please contact the office. 5. We will provide appropriate medication within the normal guidelines of their prescribed use. We will also be very cautious and aware of potential abuse and extended duration of patients' medication needs. a. Pain medications are for your comfort and to assist with sleep and rest so that the tissue can heal. They are not provided in order to return to normal activity and should not be used through the day. To do so or worsening pain at night can result from ongoing tissue damage and development of tolerance to the prescribed medicine. 6. Please allow 2-3 days to process refills. Prescriptions will not be mailed but must be picked up at the office. FOLLOW UP VISIT: Keep your scheduled follow-up appointment. Any questions, please call the office at . Pending Studies at Discharge: No Stand-Alone Forms: My [employer], Smoking Cessation Medications and DC Order Prescriptions: New tramadol 50 mg tablet 50 mg PO Q6H PRN (Reason: pain, moderate) Qty: 20 RF: 0 oxycodone 5 mg tablet 5 mg PO Q6H PRN (Reason: pain, severe) Qty: 20 RF: 0 Continued fluticasone propionate 50 mcg/actuation [place],Suspension 1 spray INTRANASAL DAILY PRN (Reason: Allergy Symptoms) Qty: 0 RF: 0 amlodipine [Norvasc] 5 mg Tablet 5 mg PO QAM Qty: 0 RF: 0 pantoprazole 40 mg tablet,delayed release (DR/EC) 40 mg PO QAM RF: 0 lidocaine 5 % adhesive patch,medicated 1 patch TOP DAILY PRN (Reason: pain) Qty: 15 RF: 0 Discharge Orders: Discharge Order (Routine); Ordered 03/31/20 Ordered By: Venu Beltran Admission Data Admit Date/Time: 03/29/20 17:16 Attending Provider: Venu Beltran Admit Provider: Venu Beltran Primary Care Provider: Farhad Larsen Other Providers: Nic Jackson
[2020-03-31] MEDS: ACETAMINOPHEN 500 MG TAB PO PRN (10:12)
== END 2020-03-31 12:25 | disposition home or self-care (01) ==
LOC: ASU 11:06 → INTOOBSV 17:16 → 3E 17:16